=== PATIENT | female | born 1955 | race Caucasian/White ===

== ENCOUNTER → 2019-03-16 | Day surgery (SDC) | payer OTHER ==
[~2019-03-16] MED LIST: ALENDRONATE SOD70 MG PO; BUPIVACAINE HCL 0.5% INJ 30 ML VIAL INJ ONE; CEFAZOLIN SOD 1 GM/NS 50ML 50 ML IV ONE; DEXAMETHASONE SOD PHOS INJ 4 MG/ML VIAL ONE; FENTANYL CITRATE/PF 100MCG/2 ML INJ ONE; KETOROLAC TROMETHAMINE 30 MG/ML VIAL ONE; LIDOCAINE HCL 2% LOCAL INJ 5 ML SDV VIAL INJ ONE; MULTIVITAMINS1 EAC7 PO; ONDANSETRON HCL INJ 2MG/ML 2ML 2 MG/ML VIAL ONE; PRAVASTATIN SOD20 MG PO; PROPOFOL IV EMULSION 10 MG/ML 20 ML VIAL ONE; SEVOFLURANE INHAL SOLN 250 ML PEN BTL ONE; TRIAMCINOLONE ACET 40 MG/ML VIAL ONE; VITAMIN D3 PO; calcium PO
--- OUTSIDE RECORDS SUMMARY | 2019-03-16 05:11 | XMS REPORT | Continuity of Care Document ---
Author Author [facility] Interface Address Unknown Phone Unavailable Problems Problem Status Onset Date Classification Date Reported Comments Source Medications Medication Details Route Status Patient Instructions Ordering Provider Order Date Source Allergies, Adverse Reactions, Alerts Substance Category Reaction Severity Reaction type Status Date Reported Comments Source Immunizations Immunization Date Given Site Status Last Updated Comments Source Results Order Name Results Value Reference Range Date Interpretation Comments Source Vital Signs Vital Sign Value Date Comments Source Encounters Location Location Details Encounter Type Encounter Number Reason For Visit Attending Provider ADM Date DC Date Status Source Outpatient [id number] [facility] 01/02/2016 Active [facility] Outpatient [id number] [facility] 01/02/2016 Active [facility] Outpatient [id number] [facility] 01/16/2016 Active [facility] Outpatient [id number] [facility] 03/23/2016 Active [facility] Outpatient [id number] [facility] 08/16/2016 Active [facility] Procedures Procedure Code Date Perfomer Comments Source
--- OUTSIDE RECORDS SUMMARY | 2019-03-16 05:11 | XMS REPORT | Clinical Summary ---
Author Author [facility] Address Unknown Phone Unavailable Care Team Providers Care Supervisor Joiners Name Role Phone Marycruz Young MD PCP Allergies Comments Active Allergy Reactions Severity Noted Date Muscle weakness/pain Atorvastatin Other (See 10/03/2017 Comments) Medications End Date Status Medication Sig Dispensed Refills Start Date Active multivitamin with Take 1 tablet 0 minerals tablet by mouth daily. Active calcium carbonate-vitamin Take 1 tablet 0 D3 500 mg-200 unit per by mouth 2 tablet (two) times a day with meals. Active naproxen (NAPROSYN) 500 0 MG tablet 9 02/20/2020 Active pravastatin (PRAVACHOL) Take 1 tablet 30 tablet 1 20 MG tablet (20 mg total) 9 by mouth nightly. 05/02/2018 Discontinued alendronate (FOSAMAX) 70 Take 1 tablet 12 tablet 3 MG tablet (70 mg total) 8 by mouth every 7 days. 12/11/2018 Discontinued alendronate (FOSAMAX) 70 Take 1 tablet 12 tablet 3 MG tablet (70 mg total) 8 by mouth every 7 days. 09/15/2018 amoxicillin-pot Take 1 tablet 14 tablet 0 clavulanate (AUGMENTIN) by mouth 2 8 875-125 mg per (two) times a tabletIndications: Acute day for 7 non-recurrent frontal days. sinusitis 03/11/2019 alendronate (FOSAMAX) 70 Take 1 tablet 12 tablet 0 MG tablet (70 mg total) 9 by mouth every 7 days for 90 days. Active Problems Problem Noted Date Retinal vein occlusion--right eye 02/19/2017 Overview: following with opthalmology; on cortisone drops Postmenopausal bleeding 08/01/2015 Menopausal symptom 08/01/2015 Thyroid nodule Overview: Bx 04/06- negative for malignancy- repeat US 04/07* Osteoporosis Overview: DEXA 02/03; not taking fosamax as prescribed Hyperlipidemia Overview: tried Lipitor in her late 40's past but developed leg cramps so stopped it Encounter for hepatitis C screening test for low risk patient Overview: negative 02/04 Anesthesia Overview: slow emergence/MOM-PONV Eczema Overview: Eczema Encounters Care Team Description Date Type Specialty Marycruz Young MD 02/20/2019 Orders Only Internal Medicine Marycruz Young MD Routine general medical examination at a health care facility (Primary Dx); Age-related osteoporosis without current pathological fracture; Vitamin D deficiency; Pure hypercholesterolemia; Thyroid nodule; Acute right ankle pain; Ganglion cyst; Cervicalgia; Incontinence of feces, unspecified fecal incontinence type; Encounter for screening mammogram for breast cancer; Encounter for screening for cardiovascular disorders; Hearing loss of left ear, unspecified hearing loss type; Vaginal dryness; Retinal vein occlusion, unspecified laterality, unspecified retinal vein 02/19/2019 Office Visit Internal Medicine Janet Hope MA 12/11/2018 Refill Internal Medicine Marycruz Young MD Acute non-recurrent frontal sinusitis (Primary Dx); Acute bronchitis, unspecified organism 09/08/2018 Office Visit Internal Medicine Marycruz Young MD 05/15/2018 Orders Only Internal Medicine Janet Hope MA 05/02/2018 Refill Internal Medicine Ashleigh Dhillon MD Encounter for routine gynecological examination with Papanicolaou smear of cervix (Primary Dx); Special screening for malignant neoplasms, colon 04/05/2018 Office Visit Obstetrics and Gynecology Janet Hope MA 03/17/2018 Telephone Internal Medicine Marycruz Young MD Routine general medical examination at a health care facility; Thyroid nodule 03/16/2018 Hospital Radiology Encounter after 03/15/2018 Immunizations Name Dates Previously Given Next Due INFLUENZA QUAD PF 09/07/2017 Influenza Trivalent 08/21/2018, 08/20/2018, 08/05/2016 Tdap 01/03/2015 Zoster 02/14/2017 Family History Medical History Relation Name Comments Cancer Father Ron Cameron Prostate cancer [place] Diabetes Father Ron Cameron [place] Heart disease Father Ron Cameron Triple bypass- former smoker- never [facility] [place] Hypertension Father Ron Cameron Lews Parkinsonism Father Ron Nisha Lews Stroke Father Ron Cameron TIAs Lews Stroke Maternal Jaswinder T Major Stroke Grandfather Duty Vision loss Maternal [place] Macular degeneration Grandmother Arthritis Mother Suzan F Jose Daniel Dementia Mother Suzan F Jose Daniel Learning disabilities Mother Suzan Brady probably ADD Jose Daniel Cancer Paternal Mak L Prostate Cancer Grandfather Jose Daniel Stroke Paternal Muenster L Stroke Grandfather Jose Daniel Breast cancer Neg Hx Colon cancer Neg Hx paternal great uncle only Relation Name Status Comments Father Ron Diallo Maternal Grandfather Jaswinder T Duty Maternal Grandmother [place] Duty Mother Suzan Sky Paternal Grandfather Mak Sky Social History Date Tobacco Use Types Packs/Day Years Used Never Smoker Smokeless Tobacco: Never Used Tobacco Cessation: Counseling Given: No Alcohol Use Drinks/Week oz/Week Comments No Sex Assigned at Date Recorded Not on file Industry Job Start Date Occupation Not on file Not on file Not on file Travel End Travel History Travel Start No recent travel history available. Last Filed Vital Signs Time Taken Vital Sign Reading 02/19/2019 1:03 PM CDT Blood Pressure 119/74 02/19/2019 1:03 PM CDT Pulse 69 02/19/2019 1:03 PM CDT Temperature 36.6 C (97.8 F) - Respiratory Rate - 02/19/2019 1:03 PM CDT Oxygen Saturation 99% - Inhaled Oxygen - Concentration 02/19/2019 1:03 PM CDT Weight 60.8 kg (134 lb) 02/19/2019 1:03 PM CDT Height 165.1 cm (5' 5") 02/19/2019 1:03 PM CDT Body Mass Index 22.3 Plan of Treatment Care Team Description Date Type Specialty Held, Ashleigh Cardona MD [address] [address] [phone] 03/28/2019 Office Visit Obstetrics and Gynecology Health Maintenance Due Date Last Done Comments SHINGLES VACCINES (#1) 2006 INFLUENZA VACCINE 06/21/2019 08/21/2018, 08/20/2018, 09/07/2017, Additional history exists BREAST CANCER SCREENING 02/19/2021 02/19/2019, 05/15/2018, 03/08/2018 CERVICAL CANCER SCREENING 04/05/2021 04/05/2018, 04/13/2017 COLON CANCER SCREENING 04/05/2028 04/05/2018, 04/13/2017 Procedures Comments Procedure Name Priority Date/Time Associated Diagnosis URIC ACID LEVEL Routine 02/19/2019 Acute right ankle pain 2:13 PM CDT VITAMIN D 25 HYDROXY Routine 02/19/2019 Routine general medical LEVEL 2:13 PM CDT examination at a health care facility Age-related osteoporosis without current pathological fracture Vitamin D deficiency TSH REFLEX TO T4F Routine 02/19/2019 Routine general medical 2:13 PM CDT examination at a health care facility Pure hypercholesterolemia Thyroid nodule LIPID PANEL Routine 02/19/2019 Routine general medical 2:13 PM CDT examination at a health care facility Pure hypercholesterolemia COMPREHENSIVE METABOLIC Routine 02/19/2019 Routine general medical PANEL 2:13 PM CDT examination at a health care facility CBC WITH PLATELET AND Routine 02/19/2019 Routine general medical DIFFERENTIAL 2:13 PM CDT examination at a health care facility ECG 12-LEAD Routine 02/19/2019 Encounter for screening 1:58 PM CDT for cardiovascular disorders BONE DENSITY Routine 05/15/2018 MAMMO SCREENING W CAD Routine 05/15/2018 BILATERAL GYNECOLOGIC PAP TEST Routine 04/05/2018 Encounter for routine (IMAGE-GUIDED), 10:00 AM CDT gynecological examination LIQUID-BASED PREPARATION with Papanicolaou smear AND HUMAN PAPILLOMAVIRUS of cervix (HPV) HIGH-RISK DNA DETECTION WITH REFLEX TO HPV GENOTYPES 16 AND 18 HPV, LOW VOLUME RFX Routine 04/05/2018 10:00 AM CDT OCCULT BLOOD, STOOL Routine 04/05/2018 Special screening for 10:00 AM CDT malignant neoplasms, colon US THYROID Routine 03/16/2018 Routine general medical 11:58 AM CDT examination at a health care facility Thyroid nodule after 03/15/2018 Results * TSH reflex to T4 (02/19/2019 2:13 PM CDT) TSH reflex to FT4 0.91 0.40 - 4.50 mIU/L [facility] Specimen Blood Resulting Agency Comment Performing Organization Information: Site ID: [id number] Name: [facility] Address: [address] [place] [phone] Director: Lorraine Pope Performing Organization Address [facility] Phone Number [facility] [address] [address] * Vitamin D 25 hydroxy level (02/19/2019 2:13 PM CDT) Vitamin D, 25-hydroxy 27 (L) 30 - 100 ng/mL [facility] Comment: [facility] Vitamin D Status 25-OH Vitamin D: Deficiency: <20 ng/mL Insufficiency: 20 - 29 ng/mL Optimal: > or=30 ng/mL For 25-OH Vitamin D testing on patients on D2-supplementation and patients for whom quantitation of D2 and D3 fractions is required, the QuestAssureD(TM) 25-OH VIT D, (D2,D3), LC/MS/MS is recommended: order code 26570 (patients >2yrs). For more information on this test, go to: http://education.[employer].iLEVEL Solutions/faq/VNR827 (This link is being provided for informational/educational purposes only.) Specimen Blood Resulting Agency Comment Performing Organization Information: Site ID: [id number] Name: [facility] Address: [address] [place] [phone] Director: Lorraine Pope Performing Organization Address [facility] Phone Number [place] [address] [address] * CBC with platelet and differential (02/19/2019 2:13 PM CDT) WBC 7.4 3.8 - 10.8 Thousand/uL [facility] RBC 4.69 3.80 - 5.10 Million/uL [facility] HGB 13.6 11.7 - 15.5 g/dL [facility] HCT 41.0 35.0 - 45.0 % [facility] MCV 87.4 80.0 - 100.0 fL [facility] MCH 29.0 27.0 - 33.0 pg [facility] MCHC 33.2 32.0 - 36.0 g/dL [facility] RDW 12.2 11.0 - 15.0 % [facility] Platelet count 302 140 - 400 Thousand/uL [facility] MPV 10.0 7.5 - 12.5 fL [facility] Neutrophils, absolute 4,699 1,500 - 7,800 cells/uL [facility] Lymphocytes, absolute 2,035 850 - 3,900 cells/uL [facility] Monocytes, absolute 407 200 - 950 cells/uL [facility] Eosinophils, absolute 229 15 - 500 cells/uL [facility] Basophils, absolute 30 0 - 200 cells/uL [facility] Neutrophils 63.5 % [facility] Lymphocytes 27.5 % [facility] Monocytes 5.5 % [facility] Eosinophils 3.1 % [facility] Basophils + RC 0.4 % [facility] Specimen Blood Resulting Agency Comment Performing Organization Information: Site ID: [id number] Name: [facility] Address: [address] [place] [phone] Director: Lorraine Pope Performing Organization Address [facility] Phone Number [facility] [place] [address] * Uric acid level (02/19/2019 2:13 PM CDT) Uric acid 4.3 2.5 - 7.0 mg/dL [employer] [facility] Comment: [facility] Therapeutic target for gout patients: <6.0 mg/dL Specimen Blood Resulting Agency Comment Performing Organization Information: Site ID: [id number] Name: [facility] Address: [address] [place] [phone] Director: Lorraine Pope Performing Organization Address [facility] [place] [address] * Lipid panel (02/19/2019 2:13 PM CDT) Cholesterol, total 257 (H) <200 mg/dL [facility] HDL cholesterol 61 >50 mg/dL [facility] Triglycerides 116 <150 mg/dL [facility] LDL cholesterol 172 (H) mg/dL (calc) [facility] calculated Comment: [facility] Reference range: <100 Desirable range <100 mg/dL for primary prevention; <70 mg/dL for patients with CHD or diabetic patients with > or=2 CHD risk factors. LDL-C is now calculated using the Nichole calculation, which is a validated novel method providing better accuracy than the Friedewald equation in the estimation of LDL-C. Uri GRACIA et al. SHERINE. 2013;310(19): 3568-3590 (http://education.[employer] [facility] [employer].iLEVEL Solutions/faq/PXE158) Cholesterol/HDL ratio 4.2 <5.0 (calc) [employer] [facility] Non-HDL cholesterol 196 (H) <130 mg/dL (calc) [facility] Comment: [facility] For patients with diabetes plus 1 major ASCVD risk factor, treating to a non-HDL-C goal of <100 mg/dL (LDL-C of <70 mg/dL) is considered a therapeutic option. Specimen Blood Resulting Agency Comment Performing Organization Information: Site ID: [id number] Name: [facility] Address: [address] [place] [phone] Director: Lorraine Pope Performing Organization Address City/State/[place] [address] * Comprehensive metabolic panel (02/19/2019 2:13 PM CDT) Glucose 86 65 - 99 mg/dL [facility] Comment: [facility] Fasting reference interval BUN, whole blood 15 7 - 25 mg/dL [facility] Creatinine 0.61 0.50 - 0.99 mg/dL [facility] Comment: [facility] For patients >49 years of age, the reference limit for Creatinine is approximately 13% higher for people identified as -Burundian. EGFR Non-Afr. Burundian 97 > OR=60 mL/min/1.73m2 [employer] [facility] EGFR 113 > OR=60 mL/min/1.73m2 [employer] [facility] BUN/creatinine ratio NOT APPLICABLE 6 - 22 (calc) [facility] Sodium 140 135 - 146 mmol/L [employer] [facility] Potassium 4.2 3.5 - 5.3 mmol/L [employer] [facility] Chloride 103 98 - 110 mmol/L [employer] [facility] CO2 32 20 - 32 mmol/L [facility] Calcium 9.9 8.6 - 10.4 mg/dL [employer] [facility] Protein 7.2 6.1 - 8.1 g/dL [employer] [facility] Albumin, S 4.6 3.6 - 5.1 g/dL [facility] Globulin, total 2.6 1.9 - 3.7 g/dL (calc) [facility] Albumin/globulin ratio 1.8 1.0 - 2.5 (calc) [facility] Total bilirubin 0.5 0.2 - 1.2 mg/dL [facility] Alkaline phosphatase 54 33 - 130 U/L [facility] AST 15 10 - 35 U/L [facility] ALT 15 6 - 29 U/L [facility] Specimen Blood Resulting Agency Comment Performing Organization Information: Site ID: [id number] Name: [facility] Address: [address] [place] [phone] Director: Lorraine Pope Performing Organization Address City/[facility] Phone Number [place] [phone] * ECG 12 lead (02/19/2019 1:58 PM CDT) Ventricular rate 67 [facility] Atrial rate 67 [facility] [place] interval 176 [facility] QRSD interval 82 [facility] QT interval 388 [facility] QTC interval 409 [facility] P axis 1 50 [facility] QRS axis 1 65 [facility] T wave axis 67 [facility] EKG impression Normal sinus rhythm-Abnormal [facility] MUSE ECG-In automated comparison with ECG of 08-MAR-2018 08:31,-No significant change was found- Narrative Performed At Performing Organization Address City/[facility] Phone Number [facility] [facility] [address] [place] [address] * Mammo Screening w Cad Bilateral (05/15/2018) Narrative Performed At * Bone Density (05/15/2018) Narrative Performed At * HPV, low volume rfx (04/05/2018 10:00 AM CDT) HPV, low volume rfx Negative Negative [facility] 03 Comment: This test detects fourteen high-risk HPV types (16,18,31,33,35,39,45, 51,52,56,58,59,66,68) without differentiation. Narrative Performed At Performed at:03 - [facility] [address] [facility], [id number] Lead Project Manager: Dean Samayoa MD, Phone:[phone] Performing Organization Address City/State/Zipcode Phone Number [facility] 03 * Gynecologic Pap Test (Image-guided), Liquid-based Preparation and Human Papillomavirus (HPV) High-risk DNA Detection With Reflex to HPV Genotypes 16 and 18 (04/05/2018 10:00 AM CDT) Diagnosis CommentComment: NEGATIVE FOR [facility] INTRAEPITHELIAL LESION AND MALIGNANCY. Specimen adequacy Comment [facility] Comment: Satisfactory for evaluation.Endocervical and/or squamous metaplastic cells (endocervical component) are present. Clinician provided ICD10 CommentComment: Z01.419 [facility] Performed by: Comment [facility] Comment: Jolanta Rajput, Visual Manager (ASCP) Reviewed at: [facility] [address] [facility] [id number] Comment . [facility] Note: Comment [facility] Comment: The Pap smear is a screening test designed to aid in the detection of premalignant and malignant conditions of the uterine cervix.It is not a diagnostic procedure and should not be used as the sole means of detecting cervical cancer.Both false-positive and false-negative reports do occur. Test methodology Comment [facility] Comment: This liquid based ThinPrep(R) pap test was screened with the use of an image guided system. HPV, high-risk CANCELED [facility] 02 Comment: The quantity of specimen remaining in the vial after Pap slide preparation was less than the 4 mL minimum cell suspension required. Low sample cellularity may be the cause.See HPV, low volume rfx test result. This high-risk HPV test detects thirteen high-risk types (16/18/31/33/35/39/45/51/52/56 /58/59/68) without differentiation. Result canceled by the ancillary Specimen Stool Narrative Performed At Performed at: - [facility] [address] [facility], [id number] Lead Project Manager: Mayda Perez MD, Phone:[phone] Performed at: - [facility] [address] [facility], [id number] Lead Project Manager: Mayda Perez MD, Phone:[phone] Specimen Comment: No. of containers..01 ThinPrep Vial Performing Organization Address City/[facility]/Zipcode Phone Number [facility] 02 * Occult blood, stool (04/05/2018 10:00 AM CDT) Occult blood, stool Negative Negative [facility] Specimen Stool Narrative Performed At Performed at:01 - [facility] [address] [place], [id number] Lead Project Manager: Dennis Gaming MD, Phone:[phone] Performing Organization Address City/State/Zipcode Phone Number [facility] * US Thyroid (03/16/2018 11:58 AM CDT) Narrative Performed At EXAMINATION:US THYROID RADIANT CLINICAL HISTORY:Z00.00 Encounter for general adult medical examination without abnormal findings, E04.1 Nontoxic single thyroid nodule, Follow-up of thyroid nodules COMPARISON:April 01, 2017 TECHNIQUE:Sonographic evaluation of the thyroid. FINDINGS: 1.Right lobe measures 5.4 x 1.7 x 2.2 cm.Left lobe measures 4.2 x 1.2 x 1.8 cm.Size of the gland is unchanged when compared to prior study. 2.Dominant 2.8 cm nodule in the right lobe is stable. 3 small nodules in the left thyroid lobe, each measuring less than 1 cm, also stable. No new nodules are seen. IMPRESSION: Stable thyroid nodules. [facility]-[id number] Procedure Note Interface, Radiology Results Incoming - 03/16/2018 2:47 PM CDT EXAMINATION: US THYROID CLINICAL HISTORY: Z00.00 Encounter for general adult medical examination without abnormal findings, E04.1 Nontoxic single thyroid nodule, Follow-up of thyroid nodules COMPARISON: April 01, 2017 TECHNIQUE: Sonographic evaluation of the thyroid. FINDINGS: 1. Right lobe measures 5.4 x 1.7 x 2.2 cm. Left lobe measures 4.2 x 1.2 x 1.8 cm. Size of the gland is unchanged when compared to prior study. 2. Dominant 2.8 cm nodule in the right lobe is stable. 3 small nodules in the left thyroid lobe, each measuring less than 1 cm, also stable. No new nodules are seen. IMPRESSION: Stable thyroid nodules. [facility]-[id number] Performing Organization Address City/State/Zipcode Phone Number [facility] [address] [place] [address] after 03/15/2018 Insurance Payer Benefit Subscriber ID Type Phone Address Plan / Group AETNA AETNA PPO xxxxxxxxxx PPO OPEN CHOICE Advance Directives Patient has advance care planning documents on file. For more information, sruthi palacio contact: Saad German [address] [place] [address]
[2019-03-16 08:20] VITALS: BP 135/86
--- NOTE | 2019-03-16 16:25 | Operative Report ---
DATE OF PROCEDURE: 03/16/2019 SURGEON: Jeremy Couch DPM (Charley) RETORT KILN BURNER SURGEON: Garry Frazier DPM PREOPERATIVE DIAGNOSIS: Ganglion cyst, right ankle. POSTOPERATIVE DIAGNOSIS: Ganglion cyst, right ankle. OPERATIVE PROCEDURE: Excision of ganglion cyst, right ankle. DESCRIPTION OF PROCEDURE: The patient was placed on the OR table in the supine position. The right lower extremity was prepped and draped in the usual manner. A general anesthetic was then administered and hemostasis accomplished using a pneumatic cuff set at 350 mmHg at thigh level. Curved type incision approximately 4 cm in length was made just under the distal aspect of the medial malleolus. The incision was deepened. Blood vessels were either ligated or retracted. posterior tibial tendon and posterior tibial artery were identified and retracted out of the way. There was a small ganglion cyst beneath the nerve and the tendon and the artery. This was isolated and excised in total. The wound was then flushed with sterile saline solution. Some Decadron was laid along the posterior tibial nerve. At this time, the skin was closed with 4-0 nylon using interrupted suture. Following the procedure, 8 mL of 0.5 Marcaine was used to minimize the postoperative pain. A sterile compression dressing was then applied. The pneumatic cuff was then released and reflex hyperemia was observed to all digits. The patient tolerated the procedure and anesthesia well and left the OR to recovery in good condition with vital signs stable. Jeremy Couch DPM (Charley) SH/MODL /[id number] MTDD
== END | disposition home or self-care (01) ==
LOC: OR 05:00
PROVIDERS: ATTEND Podiatrist Foot & Ankle Surgery
DX: M67.471 Ganglion, right ankle and foot (principal); E78.00 Pure hypercholesterolemia, unspecified
CPT/HCPCS: 27630; J0690; J1100; J1885; J2001; J2405; J2704; J3301